=== PATIENT | male | born 1990 | race American Indian/Alaskan Native ===

== ENCOUNTER 2017-02-25 07:59 | Inpatient (IN) | payer OTHER, SELFPAY ==
[~2017-02-25] VITALS: Ht 195.6 cm; Wt 108.0 kg
[2017-02-25] MEDS ORDERED: MAALOX 30 ML SUSP *UDC PO PRN (11:45)
[2017-02-25] MEDS ORDERED: traZODone 50 MG TAB PO PRN (11:45)
[2017-02-25] MEDS ORDERED: MOM 30ML SUSPENSION UDC PO PRN (11:45)
[2017-02-25] MEDS ORDERED: CITA20TA4 PO (13:26)
[2017-02-25] MEDS ORDERED: NICOTINE 21MG/24HR 1 EA TRANSDERMAL TD ONE (13:30)
[2017-02-25] MEDS ORDERED: NAPROXEN 250 MG TAB PO ONE (13:30)
[2017-02-25 14:29] VITALS: BP 151/88
--- NOTE | 2017-02-25 16:09 | MHHPEPDOC ---
[facility] History & Physical History and Physical DATE OF ADMISSION: Feb 25, 2017 at 11:39 LEGAL STATUS AT ADMISSION: 9:39 INVOLUNTARY EMERGENCY ADMISSION CHIEF COMPLAINT: . " " i WAS taken to the hospital because I was very angry" HISTORY OF THE PRESENT ILLNESS: Patient is a 26-year-old male, status post transferred from the [facility], from their family store. Patient was angry as he denied stealing from the store. On Thursday evening. He also was using opioids this time. Fentanyl patches and was high, as reported. He was basically sitting a friend and venting with him about the situation, had an anger are outburst and made statements of self harm as he was angry. He is regretful about the things that he said. When the police arrived. He denied any symptoms of depression, no ideas of self-harm or harm to others. Denied any manic, hypomanic symptoms. No symptoms of psychosis or anxiety. He reported using opioids either heroin or pain killers or fentanyl frequently. He also smokes marijuana daily. He used crack cocaine but he has not done it in a while. He drinks alcohol several times a week. Patient was supposed to be taking medications for depression Celexa and hydroxyzine for anxiety. He has insight about his substance use problem, even that he goes to a drug outpatient clinic and has psychotherapy at his local mental health clinic within the [facility] that he lives. PSYCHIATRIC REVIEW OF SYSTEMS: Affective: . Denied any mood symptoms Anxiety: . Denied Trauma: . Denied Psychosis: . Denied Personally: . No known personality disorder PAST PSYCHIATRIC HISTORY: Prior Psychiatric Disorder: . History of depression, substance abuse versus substance abuse mood disorder Outpatient Treatment: . Currently has outpatient treatment consisting of psychotherapy and substance abuse outpatient treatment. He denied being in opioid abuse versus dependence medication like methadone or buprenorphine. Suicidal/Self injurious: . Reported suicidal ideas in the past but no suicide attempts Psychotropic Medication History: . He has been taking Celexa and hydroxyzine on and off within the last year reported a previous psychiatric admission in [facility] after he made some statements regarding self-harm behaviors ALLERGIES: Please see below. FAMILY PSYCHIATRIC HISTORY: . Denied any family history of mental conditions SOCIAL HISTORY: He is single, has a girlfriend and lives with his parents in the [facility]. 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 He has history of opioid abuse versus dependence, crack cocaine abuse versus dependence and cannabis abuse versus dependence report that he was frequently opioids either heroine or pain management medications. He has not don crack cocaine in several months and he smokes marijuana daily. He drinks several drinks every week. Though does not think that he has alcohol problem PAST MEDICAL/SURGICAL HISTORY: 1. . Denied 2. . VITAL SIGNS: Temperature , pulse , respiratory rate , blood pressure , pulse oximetry % on room air. MENTAL STATUS EXAMINATION: General appearance: Patient is a 26 years old male, strokes stated age, athletic build for grooming and hygiene, pleasant and cooperative Speech: . Fluent and coherent Thought processes: . Linear and goal directed Thought content: . No suicidal or homicidal ideas. No delusions elicited. No perceptual disturbances Abstract reasoning and computation: . Abstract reasoning Description of associations: . None Description of abnormal or psychotic thoughts: . No psychosis Judgment: . Limited Insight: . Fair Orientation: . Oriented 3 Recent and remote memory: . Intact Attention span and concentration: . Intact Fund of knowledge: . Average Mood: "Fine." Affect: . Full range DIAGNOSES: 1. . Substance-induced mood disorder 2. . Opioids abuse versus dependence. Cannabis abuse versus dependence. cocaine Abuse versus dependence r/o polysubstance abuse 3. . ASSESSMENT: Patient is a 26 years old male with substance abuse problems Admitted after having an outburst at home and reported roommate, self-harm behaviors, statements, patient denied any depressive symptoms. No ideas of self- harm or others. However, his main problems is to be substance abuse. Patient has insight of her current condition and is willing to continue in a substance abuse rehabilitation program. He was taking an antidepressant and hydroxyzine for anxiety before and wants to restart those medications. He has insight about his anger control issues and is willing to work with that in psychotherapy PROBLEM LIST: 1. . Substance abuse 2. . Anger control problems 3. . INITIAL TREATMENT PLAN: 1. Patient was admitted on an involuntary legal status 2. Complete history was obtained. 3. With patients permission, family will be contacted and database will be expanded. 4. Patients medication regimen will be reviewed and changed accordingly. 5. Patient will be provided with protected environment. 6. Patient will be treated with individual, group, and milieu therapies. 7. Patient will receive supportive psych-education. 8. Discharge planning will commence immediately. 9. Outpatient follow-up treatment will be strongly recommended. 10. The initial treatment plan will focus initially on: * * Substance abuse. ESTIMATED LENGTH OF STAY: 2- 3- DAYS. TIME SPENT COUNSELING AND COORDINATING INITIAL CARE: 50 minutes. Medications Scheduled Citalopram Hydrobromide (Citalopram Hydrobromide) 20 Mg Tab, 20 MG PO DAILY, ( Reported) PT STATES HE IS ON AND HAS SOME AT HOME BUT DOES NOT HAVE AN ACTIVE SCRIPT SINCE AUGUST 2016 Allergies Coded Allergies: No Known Allergies (Unverified , 02/25/17) GLADYS MORALEZ MD Feb 25, 2017 16:09
[2017-02-25] MEDS: hydrOXYzine 25 MG TAB PO PRN (19:12)
[2017-02-26 06:33] VITALS: BP 99/69
[2017-02-26] MEDS: CitaloPRAM (CeleXA) 20 MG TAB PO SCH (08:06)
[2017-02-26] MEDS: ACETAMINOPHEN TAB 650MG DOSE (2X325MG) PO PRN ×2 (08:07→21:19)
--- NOTE | 2017-02-26 09:16 | HPEPDOC ---
[facility] Medical History & Physical Date of Admission Feb 25, 2017 History and Physical [facility]ENDING: Dr. Misael Villalobos HPI: 26yoM transferred from [facility] admitted to [facility] for depressive disorder, being medically examined today. No acute medical complaints today. Denies any fevers, chills, weakness, fatigue, VERDE, CP, SOB, cough, palpitations, abdominal pain, N/V/D or changes in bowel or bladder habits. PMHx: Depression Anxiety H/O SI Chronic low back pain, controlled. Chronic right knee pain, controlled. Substance use Alcohol use PSHX: Denies SOCHX: Resides in: [facility] Marital Status: Single Kids: 1 Employment: [employer] Tobacco use: One half to one pack per day ETOH: 2-3 times per week 10 drinks Illicit Drugs: Marijuana daily. History of opiate use, patient states he went to rehabilitation. States he currently only uses occasionally on weekends. IV Drug Use: Denies Tattoos done unprofessionally: Denies FAMHX: Mother: Alive, well Father: Alive, well Siblings: One brother, 3 sisters Alive, well Children: Alive, well Unexpected deaths due to medical reasons: None. ROS: As noted in HPI, otherwise 11pt ROS of systems reviewed and remarkable for chronic low back pain which he attributes to his work and crawling through tight spaces and chronic right knee pain. Patient states his pain is controlled with Aleve as needed. PE: GEN: 26 yoM, appears stated age. Well-nourished, well developed. No acute distress. Alert and oriented x 3. Pleasant, interactive. HEENT: Normocephalic, atraumatic. Pupils are equal, round, and reactive to light. Extraocular movements are intact. No nystagmus appreciated. Sclera are nonicteric. Conjunctiva without injection. Nose midline. Nasal turbinates without bogginess. EACs both patent BL. TMs both visualized and zepeda with good cone of light, no bulging or erythema. No facial asymmetry. Moist mucous membranes. Dentition fair. Pharynx pink and moist, no cobblestoning. Neck supple , trachea midline. No lymphadenopathy or thyromegaly appreciated. CHEST: Regular rate and rhythm, +S1, +S2 LUNGS: Clear to auscultation bilaterally. No wheezes, rales, or rhonchi. Breathing appears symmetric and easy. Patient is speaking in full sentences. No accessory muscle use. ABD: Round, soft, non-tender, non-distended. +Bowel sounds throughout. No rebound or guarding. No costovertebral angle tenderness. EXT: Pulses 2+ bilaterally dorsalis pedis and radial. No lower extremity edema appreciated. SKIN: [place], dry, warm. Capillary refill <2sec. No rashes. Various healed scars are noted on the arms bilaterally which the patient states is related to previous work injuries. NEURO: Alert and oriented x 3. Cranial nerves III-XII are intact. No focal deficits appreciated. [facility]. WBC 13.32 Hgb 15.7 HCT 46.4 Plt 190 Gluc 78 BUN 12 SCr 0.85 Na 138 K 4.0 Cl 101 CO2 29 Ca 8.6 AST 24 ALT 44 TSH 2.45 Toxicology remarkable for cannabinoid UA unremarkable CXR NAD EKG NSR A&P: 26yoM transferred from [facility] admitted to [facility] for depressive disorder 1. Psych. Plan per Psychiatry. EKG on file. 2. Nicotine dependence. Patch available. 3. Follow up with PCP on discharge. 5. Substance use. Per psychiatry. 6. Leukocytosis. Pt afebrile. Asymptomatic. Recheck CBC. 7. Elevated LFT. Recheck CMP. 8. Staff member Ed present throughout exam. Vital Signs Vital Signs Date Time Temp Pulse Resp B/P (MAP) Pulse Ox O2 Delivery O2 Flow Rate FiO2 02/26/17 06:33 98.4 72 18 99/69 (79) 02/25/17 13:42 99 Home Medications Scheduled Citalopram Hydrobromide (Citalopram Hydrobromide) 20 Mg Tab, 20 MG PO DAILY PT STATES HE IS ON AND HAS SOME AT HOME BUT DOES NOT HAVE AN ACTIVE SCRIPT SINCE AUGUST 2016 Allergies Coded Allergies: No Known Allergies (Unverified , 02/25/17) Aliyah Long Feb 26, 2017 09:16
[2017-02-26] MEDS: NICOTINE 21MG/24HR 1 EA TRANSDERMAL TD SCH (11:53)
--- NOTE | 2017-02-26 12:07 | MHIPNPDOC ---
[facility] Progress Note Progress Note DATE OF SERVICE: 02/26/17 HISTORY: . Patient is a 26-year-old male, admitted after having an anger outburst and making statements of self harm. He denied any symptoms of depression, no ideas of self-harm or harm to others. Denied any manic, hypomanic symptoms. No symptoms of psychosis or anxiety. He reported using opioids either heroin or pain killers or fentanyl frequently. He also smokes marijuana daily. He has insight about his substance use problem, even that he goes to a drug outpatient clinic and has psychotherapy at his local mental health clinic within the [facility] that he live. He was started on his home medications, no side effects. VITAL SIGNS: See below. NEW TEST RESULTS: . CURRENT MEDICATIONS: See below. MENTAL STATUS EXAMINATION: General appearance: Patient is a 26 years old male, strokes stated age, athletic build for grooming and hygiene, pleasant and cooperative Speech: . Fluent and coherent Thought processes: . Linear and goal directed Thought content: . No suicidal or homicidal ideas. No delusions elicited. No perceptual disturbances Abstract reasoning and computation: . Abstract reasoning Description of associations: . None Description of abnormal or psychotic thoughts: . No psychosis Judgment: . Limited Insight: . Fair Orientation: . Oriented 3 Recent and remote memory: . Intact Attention span and concentration: . Intact Fund of knowledge: . Average Mood: "Fine." Affect: . Full range DIAGNOSES: 1. .substance induced mood disorder 2. .opioid/cannabis abuse versus dependence 3. . ASSESSMENT: Patient is a 26 years old male with substance abuse problems Admitted after having an outburst at home and reported roommate, self-harm behaviors, statements, patient denied any depressive symptoms. No ideas of self- harm or others. However, his main problems is to be substance abuse. Patient has insight of her current condition and is willing to continue in a substance abuse rehabilitation program. He was taking an antidepressant and hydroxyzine for anxiety before and wants to restart those medications. He has insight about his anger control issues and is willing to work with that in psychotherapy MANAGEMENT PLAN: . continue citalopram and hydroxyzine, discharge plan for tomorrow TIME SPENT: 25 minutes. Vital Signs Vital Signs Date Time Temp Pulse Resp B/P (MAP) Pulse Ox O2 Delivery O2 Flow Rate FiO2 02/26/17 06:33 98.4 72 18 99/69 (79) 02/25/17 13:42 99 Current Medications Current Medications Acetaminophen (Tylenol Tab) 650 mg Q6HP PRN PO HEADACHE or DISCOMFORT Last administered on 02/26/17 08:07; Start 02/25/17 at 11:45; Stop 03/27/17 at 11 :44 Al Hydrox/Mg Hydrox/Simethicone (Mylanta) 30 ml Q4HP PRN PO HEARTBURN/ INDIGESTION; Start 02/25/17 at 11:45; Stop 03/27/17 at 11:44 Citalopram Hydrobromide (CeleXA) 20 mg QAM PO Last administered on 02/26/17 08:06; Start 02/26/17 at 09:00; Stop 03/28/17 at 08:59 Home Med (Med Rec Complete!) ASDIRECTED XX ; Start 02/25/17 at 13:30; Stop at 13:32; Status DC Hydroxyzine HCl (Atarax) 25 mg Q6HP PRN PO ANXIETY Last administered on 19:12; Start 02/25/17 at 15:30; Stop 03/27/17 at 15:29 Magnesium Hydroxide (Milk Of Magnesia) 30 ml DAILYPRN PRN PO CONSTIPATION; Start 02/25/17 at 11:45; Stop 03/27/17 at 11:44 Nicotine (Nicoderm Cq 21mg) 1 patch DAILY TD Last administered on 02/26/17 11 :53; Start 02/26/17 at 09:00; Stop 03/28/17 at 08:59 Trazodone HCl (Desyrel) 50 mg QHSP PRN PO INSOMNIA; Start 02/25/17 at 11:45; Stop 03/27/17 at 11:44 Allergies Coded Allergies: No Known Allergies (Unverified , 02/25/17) GLADYS MORALEZ MD Feb 26, 2017 12:07
[2017-02-26 18:49] VITALS: BP 138/90
[2017-02-26] MEDS: hydrOXYzine 25 MG TAB PO PRN (21:19)
[2017-02-27 07:05] VITALS: BP 131/76
[2017-02-27] MEDS: ACETAMINOPHEN TAB 650MG DOSE (2X325MG) PO PRN (08:41)
[2017-02-27] MEDS: NICOTINE 21MG/24HR 1 EA TRANSDERMAL TD SCH (08:41)
[2017-02-27] MEDS: CitaloPRAM (CeleXA) 20 MG TAB PO SCH (08:41)
[2017-02-27] MEDS ORDERED: CELE20TA PO (08:52)
[2017-02-27] MEDS ORDERED: NICO21PAT TD (08:52)
[2017-02-27] MEDS ORDERED: TRAZO50TA PO (08:52)
[2017-02-27] MEDS ORDERED: HYDR-3363 PO (08:52)
--- NOTE | 2017-02-27 08:54 | MHDSPDOC ---
[facility] Discharge Summary Discharge Summary DATE OF ADMISSION: Feb 25, 2017 at 11:39 DATE OF DISCHARGE: FEBRUARY 27, 2017 AT 10:00 DISCHARGE DIAGNOSES: 1. . SUBSTANCE INDUCED MOOD DISORDER 2. .OPIOIDS/CANNABIS ABUSE VERSUS DEPENDENCE REASON FOR ADMISSION: " i WAS taken to the hospital because I was very angry" HISTORY OF THE PRESENT ILLNESS: Patient is a 26-year-old male, status post transferred from the [facility], after having an altercation with father at their family store. Patient was angry as he was accused /denied stealing from the store. On Thursday evening. He also was using opioids this time. Fentanyl patches and was high, as reported. He was basically sitting with a friend and venting with him about the situation, had an anger are outburst and made statements of self harm as he was angry. Father called the police. He is regretful about the things that he said. When the police arrived. He denied any symptoms of depression, no ideas of self-harm or harm to others. Denied any manic, hypomanic symptoms. No symptoms of psychosis or anxiety. He reported using opioids either heroin or pain killers or fentanyl frequently. He also smokes marijuana daily. He used crack cocaine but he has not done it in a while. He drinks alcohol several times a week. Patient was supposed to be taking medications for depression Celexa and hydroxyzine for anxiety. He has insight about his substance use problem, even that he goes to a drug outpatient clinic and has psychotherapy at his local mental health clinic within the [facility] that he lives. CONSULTANTS INVOLVED: NONE TREATMENT AND PROGRESS ON THE UNIT : . Patient was admitted after having an anger outburst and endorsing ideas of self- harm that were set on their frustration and anger. Patient didn't mean to have any ideas of self-harm. He had been using pain killers and fentanyl patches and reported that was high when he had the anger episode. He was restarted in his home medications including citalopram and hydroxyzine. Patient denied any side effects of the medications. He was participating in the groups and interacting with peers in the unit HOSPITAL COURSE: as above DISCHARGE ASSESSMENT: Patient is a 26 years old male with substance abuse problems Admitted after having an outburst at home and reported roommate, self-harm behaviors, statements, patient denied any depressive symptoms. No ideas of self- harm or others. However, his main problems is to be substance abuse. Patient has insight of her current condition and is willing to continue in a substance abuse rehabilitation program. He was taking an antidepressant and hydroxyzine for anxiety before and wants to restart those medications. He has insight about his anger control issues and is willing to work with that in psychotherapy MENTAL STATUS EXAMINATION ON DISCHARGE: General appearance: Patient is a 26 years old male, strokes stated age, athletic build for grooming and hygiene, pleasant and cooperative Speech: . Fluent and coherent Thought processes: . Linear and goal directed Thought content: . No suicidal or homicidal ideas. No delusions elicited. No perceptual disturbances Abstract reasoning and computation: . Abstract reasoning Description of associations: . None Description of abnormal or psychotic thoughts: . No psychosis Judgment: . Limited Insight: . Fair Orientation: . Oriented 3 Recent and remote memory: . Intact Attention span and concentration: . Intact Fund of knowledge: . Average Mood: "Fine." Affect: . Full range MEDICATIONS ON DISCHARGE: Citalopram Hydrobromide (CeleXA) 20 mg QAM PO Hydroxyzine HCl (Atarax) 25 mg Q6HP PRN PO ANXIETY Nicotine (Nicoderm Cq 21mg) 1 patch DAILY TD Trazodone HCl (Desyrel) 50 mg QHSP PRN PO INSOMNIA; PLAN/FOLLOWUP ARRANGEMENTS: . [facility]as arranged by social sciences lecturer The amount of time spent in the coordination of care for this patient was approximately 30 minutes. Vital Signs/I&Os Vital Signs Date Time Temp Pulse Resp B/P (MAP) Pulse Ox O2 Delivery O2 Flow Rate FiO2 02/27/17 07:05 98.0 77 16 131/76 (94) 02/25/17 13:42 99 Medications Scheduled Citalopram Hydrobromide (Citalopram Hydrobromide) 20 Mg Tab, 20 MG PO DAILY, ( Reported) PT STATES HE IS ON AND HAS SOME AT HOME BUT DOES NOT HAVE AN ACTIVE SCRIPT SINCE AUGUST 2016 Citalopram Hydrobromide (Celexa) 20 Mg Tab, 20 MG PO QAM for DEPRESSION, #14 Nicotine (Nicotine Transdermal Syst) 21 Mg/24 Hr Dis, 1 PATCH TD DAILY for smoking cessation, #7 Scheduled PRN Hydroxyzine HCl (Hydroxyzine HCl) 25 Mg Tab, 25 MG PO Q6HP PRN for ANXIETY, #14 Trazodone HCl (Trazodone HCl) 50 Mg Tab, 50 MG PO QHSP PRN for INSOMNIA, #14 Allergies Coded Allergies: No Known Allergies (Unverified , 02/25/17) GLADYS MORALEZ MD Feb 27, 2017 08:54
== END 2017-02-27 11:30 | disposition home or self-care (01) | DRG 773 ==
LOC: M ED 07:59 → M ED INP 11:39 → M PSY 14:26
PROVIDERS: ADMIT Psychiatry & Neurology Psychiatry; ATTEND Psychiatry & Neurology Psychiatry
DX: F19.94 Other psychoactive substance use, unspecified with psychoactive substance-induced mood disorder (principal); F11.10 Opioid abuse, uncomplicated; D72.829 Elevated white blood cell count, unspecified; F12.10 Cannabis abuse, uncomplicated; Z79.899 Other long term (current) drug therapy; M54.5 Low back pain; F41.9 Anxiety disorder, unspecified; F17.200 Nicotine dependence, unspecified, uncomplicated